=== PATIENT | female | born 1940 | race Caucasian/White ===

== ENCOUNTER → 2017-09-22 08:47 | Outpatient (CLI) | payer MEDICARE, SELFPAY ==
[2017-09-22 15:14] LABS: INR 2.49 (0.9-1.1); Prothrombin Time 27.1 seconds (9.4-11.8)
== END ==
PROVIDERS: PCP Pediatrics; Visit Provider Pediatrics
DX: Z51.81 Encounter for therapeutic drug level monitoring (principal)
CPT/HCPCS: 36415; 85610

== ENCOUNTER → 2017-10-31 08:38 | Outpatient (CLI) | payer MEDICARE, SELFPAY ==
[2017-10-31 15:03] LABS: INR 2.71 (0.9-1.1); Prothrombin Time 29.6 seconds (9.4-11.8)
== END ==
PROVIDERS: Visit Provider Pediatrics
DX: Z79.01 Long term (current) use of anticoagulants (principal); Z51.81 Encounter for therapeutic drug level monitoring
CPT/HCPCS: 36415; 85610

== ENCOUNTER → 2017-11-12 08:44 | Outpatient (CLI) | payer MEDICARE, SELFPAY ==
[2017-11-12 13:33] LABS: Basophils % 0.7 % (0.1-2.0); Eosinophils # 0.3 K/mm3 (0.0-0.4); Eosinophils % 4.3 % (0.1-12.0); Hemoglobin 12.1 g/dL (12.2-16.2); Lymphocytes # 1.7 K/mm3 (0.7-4.5); Lymphocytes % 25.6 K/mm3 (10-50); Mean Corpuscular HGB Conc 31.1 g/dL (31.8-35.4); Mean Corpuscular Hemoglobin 32.6 pg (27.0-31.2); Mean Corpuscular Volume 104.6 fl (81-99); Mean Platelet Volume 9.4 fl (7.4-10.4); Monocytes # 0.4 K/mm3 (0.1-1.0); Monocytes % 6.7 % (1.7-9.3); Neutrophils # 4.1 K/mm3 (1.8-7.8); Neutrophils % 62.7 % (37.0-80.0); Platelet Count 152 K/mm3 (142-424); Red Blood Count 3.73 M/mm3 (4.20-5.40); Red Cell Distribution Width 13.4 % (11.5-17.5); White Blood Count 6.6 K/mm3 (4.8-10.8)
[2017-11-12 15:08] LABS: Albumin Level 3.7 gm/dL (3.4-5.0); Anion Gap 10.7 mEq/L (5-15); Blood Urea Nitrogen 57 mg/dL (7-18); Calcium 9.3 mg/dL (8.5-10.1); Carbon Dioxide 32 mmol/L (21.0-32.0); Chloride 104 mmol/L (98-107); Creatinine,Serum 1.98 mg/dL (0.55-1.02); Estimated Glomerular Filt Rate 25 ml/min (>60); GFR (African American) 30 ML/MIN (>60); Glucose 148 mg/dL (74-106); Phosphorous 3.6 mg/dL (2.4-4.9); Potassium 4.7 mmoL/L (3.5-5.1); Sodium 142 mmol/L (136-145)
[2017-11-12 20:20] LABS: Creatinine,Urine Random 43 mg/dL (20-320); Total Protein,Urine Random 12.9 mg/dL (0.0-11.9)
[2017-11-14 15:21] LABS: Parathyroid Hormone Intact 171 pg/mL (15-65)
== END ==
PROVIDERS: Visit Provider Internal Medicine Nephrology
DX: Z79.01 Long term (current) use of anticoagulants (principal); Z51.81 Encounter for therapeutic drug level monitoring
CPT/HCPCS: 36415; 80069; 82570; 83970; 84155; 85025

== ENCOUNTER → 2017-12-22 08:47 | Outpatient (CLI) | payer MEDICARE, SELFPAY ==
[2017-12-22 14:39] LABS: INR 2.08 (0.9-1.1); Prothrombin Time 22.6 seconds (9.4-11.8)
== END ==
PROVIDERS: PCP Pediatrics; Visit Provider Pediatrics
DX: Z79.01 Long term (current) use of anticoagulants (principal); Z51.81 Encounter for therapeutic drug level monitoring
CPT/HCPCS: 36415; 85610

== ENCOUNTER → 2018-01-28 08:44 | Outpatient (CLI) | payer MEDICARE, SELFPAY ==
[2018-01-28 14:11] LABS: INR 2.98 (0.9-1.1); Prothrombin Time 32.6 seconds (9.4-11.8)
== END ==
PROVIDERS: Visit Provider Pediatrics
DX: Z79.01 Long term (current) use of anticoagulants (principal); Z51.81 Encounter for therapeutic drug level monitoring
CPT/HCPCS: 36415; 85610

== ENCOUNTER → 2018-02-18 09:01 | Outpatient (CLI) | payer MEDICARE, SELFPAY ==
[2018-02-18 14:20] LABS: Basophils % 0.6 % (0.1-2.0); Eosinophils # 0.2 K/mm3 (0.0-0.4); Hematocrit 36.1 % (37.0-47.0); Lymphocytes # 1.1 K/mm3 (0.7-4.5); Lymphocytes % 19.4 K/mm3 (10-50); Mean Corpuscular HGB Conc 30.6 g/dL (31.8-35.4); Mean Corpuscular Hemoglobin 31.5 pg (27.0-31.2); Mean Corpuscular Volume 103.1 fl (81-99); Mean Platelet Volume 9.5 fl (7.4-10.4); Monocytes # 0.4 K/mm3 (0.1-1.0); Monocytes % 6.1 % (1.7-9.3); Platelet Count 159 K/mm3 (142-424); Red Cell Distribution Width 13.4 % (11.5-17.5); White Blood Count 5.7 K/mm3 (4.8-10.8)
[2018-02-18 14:41] LABS: Albumin Level 3.5 gm/dL (3.4-5.0); Blood Urea Nitrogen 47 mg/dL (7-18); Calcium 9.7 mg/dL (8.5-10.1); Carbon Dioxide 30 mmol/L (21.0-32.0); Chloride 105 mmol/L (98-107); Creatinine,Serum 1.85 mg/dL (0.55-1.02); Estimated Glomerular Filt Rate 27 ml/min (>60); GFR (African American) 32 ML/MIN (>60); Glucose 181 mg/dL (74-106); Phosphorous 3.7 mg/dL (2.4-4.9); Sodium 141 mmol/L (136-145)
[2018-02-18 18:44] LABS: Creatinine,Urine Random 28 mg/dL (20-320); Total Protein,Urine Random 12.1 mg/dL (0.0-11.9)
[2018-02-20 20:03] LABS: Parathyroid Hormone Intact 161 pg/mL (15-65)
== END ==
PROVIDERS: Visit Provider Internal Medicine Nephrology
DX: N18.9 Chronic kidney disease, unspecified (principal); I10 Essential (primary) hypertension; N18.4 Chronic kidney disease, stage 4 (severe); E11.21 Type 2 diabetes mellitus with diabetic nephropathy; M10.9 Gout, unspecified; E78.5 Hyperlipidemia, unspecified; M25.819 Other specified joint disorders, unspecified shoulder
CPT/HCPCS: 36415; 80069; 82570; 83970; 84155; 85025

== ENCOUNTER → 2018-03-23 08:37 | Outpatient (CLI) | payer MEDICARE, SELFPAY ==
[2018-03-23 14:04] LABS: INR 2.33 (0.9-1.1); Prothrombin Time 23.4 seconds (9.4-11.8)
== END ==
PROVIDERS: Visit Provider Pediatrics
DX: Z79.01 Long term (current) use of anticoagulants (principal); Z51.81 Encounter for therapeutic drug level monitoring
CPT/HCPCS: 36415; 85610

== ENCOUNTER → 2018-05-20 08:42 | Outpatient (CLI) | payer MEDICARE, SELFPAY ==
[2018-05-20 14:02] LABS: Albumin Level 3.9 gm/dL (3.4-5.0); Anion Gap 11.9 mEq/L (5-15); Blood Urea Nitrogen 57 mg/dL (7-18); Calcium 9.9 mg/dL (8.5-10.1); Carbon Dioxide 32 mmol/L (21.0-32.0); Chloride 104 mmol/L (98-107); Creatinine,Serum 2.19 mg/dL (0.55-1.02); Estimated Glomerular Filt Rate 22 ml/min (>60); GFR (African American) 26 ML/MIN (>60); Glucose 157 mg/dL (74-106); Phosphorous 3.5 mg/dL (2.4-4.9); Potassium 4.9 mmoL/L (3.5-5.1); Sodium 143 mmol/L (136-145)
[2018-05-20 14:15] LABS: Basophils % 0.6 % (0.1-2.0); Eosinophils # 0.3 K/mm3 (0.0-0.4); Eosinophils % 3.8 % (0.1-12.0); Hematocrit 37.9 % (37.0-47.0); Hemoglobin 11.8 g/dL (12.2-16.2); Lymphocytes # 2.1 K/mm3 (0.7-4.5); Mean Corpuscular Hemoglobin 31.8 pg (27.0-31.2); Mean Corpuscular Volume 102.3 fl (81-99); Mean Platelet Volume 9.3 fl (7.4-10.4); Monocytes # 0.4 K/mm3 (0.1-1.0); Monocytes % 5.7 % (1.7-9.3); Neutrophils # 4.8 K/mm3 (1.8-7.8); Platelet Count 179 K/mm3 (142-424); Red Cell Distribution Width 13.5 % (11.5-17.5); White Blood Count 7.6 K/mm3 (4.8-10.8)
[2018-05-20 14:21] LABS: Creatinine,Urine Random 37 mg/dL (20-320); Total Protein,Urine Random 10.1 mg/dL (0.0-11.9)
[2018-05-20 15:03] LABS: INR 3.35 (0.9-1.1); Prothrombin Time 33.3 seconds (9.4-11.8)
[2018-05-22 18:39] LABS: Parathyroid Hormone Intact 181 pg/mL (15-65); Vitamin D 25 Hydroxy 47.9 ng/mL (30.0-100.0)
== END ==
PROVIDERS: Internal Medicine Nephrology; PCP Pediatrics; Visit Provider Pediatrics
DX: N18.9 Chronic kidney disease, unspecified (principal); N18.4 Chronic kidney disease, stage 4 (severe); I10 Essential (primary) hypertension; E11.21 Type 2 diabetes mellitus with diabetic nephropathy; M10.9 Gout, unspecified; E78.5 Hyperlipidemia, unspecified; N25.81 Secondary hyperparathyroidism of renal origin
CPT/HCPCS: 36415; 80069; 82570; 82652; 83970; 84155; 85025; 85610

== ENCOUNTER → 2018-06-26 08:43 | Outpatient (CLI) | payer MEDICARE, SELFPAY ==
[2018-06-26 15:11] LABS: INR 2.95 (0.9-1.1); Prothrombin Time 29.4 seconds (9.4-11.8)
== END ==
PROVIDERS: PCP Pediatrics; Visit Provider Pediatrics
DX: Z51.81 Encounter for therapeutic drug level monitoring (principal); Z79.01 Long term (current) use of anticoagulants; Z86.718 Personal history of other venous thrombosis and embolism
CPT/HCPCS: 36415; 85610

== ENCOUNTER → 2018-07-31 08:41 | Outpatient (CLI) | payer MEDICARE, SELFPAY ==
[2018-07-31 14:34] LABS: INR 2.78 (0.9-1.1); Prothrombin Time 27.8 seconds (9.4-11.8)
== END ==
PROVIDERS: PCP Pediatrics; Visit Provider Pediatrics
DX: Z51.81 Encounter for therapeutic drug level monitoring (principal); Z79.01 Long term (current) use of anticoagulants; Z86.718 Personal history of other venous thrombosis and embolism
CPT/HCPCS: 36415; 85610

== ENCOUNTER → 2018-08-28 08:42 | Outpatient (CLI) | payer MEDICARE, SELFPAY ==
[2018-08-28 14:25] LABS: INR 3.64 (0.9-1.1); Prothrombin Time 36.1 seconds (9.4-11.8)
== END ==
PROVIDERS: PCP Pediatrics; Visit Provider Pediatrics
DX: Z51.81 Encounter for therapeutic drug level monitoring (principal); Z79.01 Long term (current) use of anticoagulants; Z86.718 Personal history of other venous thrombosis and embolism
CPT/HCPCS: 36415; 85610

== ENCOUNTER → 2018-09-02 08:54 | Outpatient (CLI) | payer MEDICARE, SELFPAY ==
[2018-09-02 08:59] LABS: Microscopic, Urine URINE MICROSCOPIC (MICROSCOPIC)
[2018-09-02 14:37] LABS: Basophils % 0.7 % (0.1-2.0); Eosinophils # 0.2 K/mm3 (0.0-0.4); Eosinophils % 3.9 % (0.1-12.0); Hematocrit 38.6 % (37.0-47.0); Hemoglobin 11.8 g/dL (12.2-16.2); Lymphocytes # 1.7 K/mm3 (0.7-4.5); Mean Corpuscular HGB Conc 30.4 g/dL (31.8-35.4); Mean Corpuscular Hemoglobin 31.8 pg (27.0-31.2); Mean Corpuscular Volume 104.4 fl (81-99); Mean Platelet Volume 9.3 fl (7.4-10.4); Monocytes # 0.4 K/mm3 (0.1-1.0); Monocytes % 8.5 % (1.7-9.3); Neutrophils # 2.8 K/mm3 (1.8-7.8); Neutrophils % 54.9 % (37.0-80.0); Platelet Count 157 K/mm3 (142-424); Red Cell Distribution Width 13.6 % (11.5-17.5); White Blood Count 5.2 K/mm3 (4.8-10.8)
[2018-09-02 14:46] LABS: Albumin Level 3.5 gm/dL (3.4-5.0); Anion Gap 14.7 mEq/L (5-15); Blood Urea Nitrogen 43 mg/dL (7-18); Calcium 9.3 mg/dL (8.5-10.1); Carbon Dioxide 29 mmol/L (21.0-32.0); Chloride 102 mmol/L (98-107); Creatinine,Serum 2.08 mg/dL (0.55-1.02); Estimated Glomerular Filt Rate 23 ml/min (>60); Ferritin 96 ng/mL (8-388); GFR (African American) 28 ML/MIN (>60); Glucose 239 mg/dL (74-106); Phosphorous 3.6 mg/dL (2.4-4.9); Potassium 4.7 mmoL/L (3.5-5.1); Sodium 141 mmol/L (136-145)
[2018-09-02 15:46] LABS: Appearance,Urine CLEAR (Clear); Bilirubin,Urine Negative (Negative); Blood, Urine TRACE-I (Negative); Color,Urine YELLOW (Yellow); Glucose,Urine (UA) Negative (Negative); Ketones,Urine Negative (Negative); Leukocyte Esterase,Urine Negative (Negative); Nitrate,Urine Negative (Negative); PH,Urine 5.5 (5.0-8.5); Protein,Urine Negative (Negative); Specific Gravity, Urine 1.015 (1.005-1.030); Urobilinogen,Urine 0.2 EU/dl (0.2)
[2018-09-02 17:27] LABS: Bacteria,Urine 2+ /lpf; Hyaline Casts,Urine Occasional #/lpf (0); RBC,Urine Occasional #/hpf (0-3); Squamous Epithelial Cell,Urine Occasional #/hpf (0-5); WBC,Urine Occasional #/hpf (0-3)
[2018-09-02 17:31] LABS: Creatinine,Urine Random 43 mg/dL (20-320); Total Protein,Urine Random 7.7 mg/dL (0.0-11.9)
[2018-09-03 08:21] LABS: Iron 62 ug/dL (27-139); UIBC 230 ug/dL (118-369)
[2018-09-03 14:47] LABS: Iron Saturation 21 % (15-55); Parathyroid Hormone Intact 224 pg/mL (15-65); Vitamin D 25 Hydroxy 35.5 ng/mL (30.0-100.0)
== END ==
PROVIDERS: PCP Pediatrics; Visit Provider Internal Medicine Nephrology
DX: N18.4 Chronic kidney disease, stage 4 (severe) (principal); D63.8 Anemia in other chronic diseases classified elsewhere; E11.21 Type 2 diabetes mellitus with diabetic nephropathy; M10.9 Gout, unspecified; E78.5 Hyperlipidemia, unspecified; N25.81 Secondary hyperparathyroidism of renal origin; R82.90 Unspecified abnormal findings in urine
CPT/HCPCS: 36415; 80069; 81001; 82570; 82652; 82728; 83540; 83550; 83970; 84155; 85025; 87086; 87088; 87186

== ENCOUNTER → 2018-09-16 08:48 | Outpatient (CLI) | payer MEDICARE, SELFPAY ==
[2018-09-16 15:20] LABS: INR 2.86 (0.9-1.1); Prothrombin Time 28.6 seconds (9.4-11.8)
== END ==
PROVIDERS: PCP Pediatrics; Visit Provider Pediatrics
DX: Z51.81 Encounter for therapeutic drug level monitoring (principal); Z79.01 Long term (current) use of anticoagulants
CPT/HCPCS: 36415; 85610

== ENCOUNTER → 2018-11-16 08:57 | Outpatient (CLI) | payer MEDICARE, SELFPAY ==
[2018-11-16 09:04] LABS: Microscopic, Urine URINE MICROSCOPIC (MICROSCOPIC)
[2018-11-16 13:45] LABS: Appearance,Urine CLEAR (Clear); Bilirubin,Urine Negative (Negative); Blood, Urine Negative (Negative); Color,Urine YELLOW (Yellow); Glucose,Urine (UA) Negative (Negative); Ketones,Urine Negative (Negative); Leukocyte Esterase,Urine Negative (Negative); Nitrate,Urine Negative (Negative); PH,Urine 5.5 (5.0-8.5); Protein,Urine Negative (Negative); Urobilinogen,Urine 0.2 EU/dl (0.2)
[2018-11-16 13:50] LABS: Basophils % 0.7 % (0.1-2.0); Eosinophils # 0.2 K/mm3 (0.0-0.4); Eosinophils % 4.1 % (0.1-12.0); Hematocrit 37.2 % (37.0-47.0); Hemoglobin 12.2 g/dL (12.2-16.2); Lymphocytes # 1.5 K/mm3 (0.7-4.5); Lymphocytes % 26.4 % (10-50); Mean Corpuscular HGB Conc 32.8 g/dL (31.8-35.4); Mean Corpuscular Hemoglobin 33.7 pg (27.0-31.2); Mean Corpuscular Volume 102.7 fl (81-99); Mean Platelet Volume 9.2 fl (7.4-10.4); Monocytes # 0.4 K/mm3 (0.1-1.0); Monocytes % 7.2 % (1.7-9.3); Neutrophils # 3.6 K/mm3 (1.8-7.8); Neutrophils % 61.6 % (37.0-80.0); Platelet Count 136 K/mm3 (142-424); Red Blood Count 3.62 M/mm3 (4.20-5.40); Red Cell Distribution Width 13.3 % (11.5-17.5); White Blood Count 5.8 K/mm3 (4.8-10.8)
[2018-11-16 14:15] LABS: Bacteria,Urine 3+ /lpf; Mucus,Urine 2+ /lpf
[2018-11-16 14:16] LABS: Alanine Aminotransferase 19 U/L (12-78); Albumin Level 3.9 gm/dL (3.4-5.0); Albumin/Globulin Ratio 1.1 (1.1-1.8); Alkaline Phosphatase 82 U/L (46-116); Anion Gap 15.8 mEq/L (5-15); Aspartate Amino Transferase 18 U/L (15-37); Bilirubin,Total 0.3 mg/dL (0.2-1.0); Blood Urea Nitrogen 56 mg/dL (7-18); Calcium 9.4 mg/dL (8.5-10.1); Carbon Dioxide 28 mmol/L (21.0-32.0); Chloride 103 mmol/L (98-107); Chol/HDL Ratio 3.1 (1-3.5); Cholesterol 147 mg/dL (140-200); Creatinine,Serum 2.13 mg/dL (0.55-1.02); Estimated Glomerular Filt Rate 23 ml/min (>60); GFR (African American) 27 ML/MIN (>60); Globulin 3.6 gm/dl (1.3-3.2); Glucose 182 mg/dL (74-106); HDL Cholesterol 47 mg/dL (29-89); LDL Cholesterol 72 mg/dL (0-130); Potassium 4.8 mmoL/L (3.5-5.1); Sodium 142 mmol/L (136-145); Thyroid Stimulating Hormone 2.78 uIU/ml (0.358-3.740); Total Protein,Serum 7.5 gm/dL (6.4-8.2); Triglycerides 140 mg/dL (30-200); VLDL Cholesterol 28 mg/dL (0-40)
[2018-11-16 14:42] LABS: INR 2.74 (0.9-1.1); Prothrombin Time 27.4 seconds (9.4-11.8)
== END ==
PROVIDERS: PCP Pediatrics; Visit Provider Pediatrics
DX: Z51.81 Encounter for therapeutic drug level monitoring (principal); Z79.01 Long term (current) use of anticoagulants; E78.5 Hyperlipidemia, unspecified; E11.9 Type 2 diabetes mellitus without complications; N18.9 Chronic kidney disease, unspecified; R82.90 Unspecified abnormal findings in urine
CPT/HCPCS: 36415; 80053; 80061; 81001; 84443; 85025; 85610; 87086; 87088; 87186

== ENCOUNTER → 2019-01-27 08:46 | Outpatient (CLI) | payer MEDICARE, SELFPAY ==
[2019-01-27 14:55] LABS: INR 2.57 (0.9-1.1); Prothrombin Time 25.6 seconds (9.4-11.8)
== END ==
PROVIDERS: PCP Pediatrics; Visit Provider Pediatrics
DX: Z51.81 Encounter for therapeutic drug level monitoring (principal); Z79.01 Long term (current) use of anticoagulants
CPT/HCPCS: 36415; 85610

== ENCOUNTER → 2019-02-24 09:12 | Outpatient (CLI) | payer MEDICARE, SELFPAY ==
[2019-02-24 14:48] LABS: INR 3.47 (0.9-1.1)
== END ==
PROVIDERS: PCP Pediatrics; Visit Provider Pediatrics
DX: Z51.81 Encounter for therapeutic drug level monitoring (principal); Z79.01 Long term (current) use of anticoagulants
CPT/HCPCS: 36415; 85610

== ENCOUNTER → 2019-03-17 08:42 | Outpatient (CLI) | payer MEDICARE, SELFPAY ==
[2019-03-17 14:31] LABS: INR 2.09 (0.9-1.1)
== END ==
PROVIDERS: PCP Pediatrics; Visit Provider Pediatrics
DX: Z51.81 Encounter for therapeutic drug level monitoring (principal); Z79.01 Long term (current) use of anticoagulants
CPT/HCPCS: 36415; 85610

== ENCOUNTER → 2019-04-14 08:43 | Outpatient (CLI) | payer MEDICARE, SELFPAY ==
[2019-04-14 08:49] LABS: Microscopic, Urine URINE MICROSCOPIC (MICROSCOPIC)
[2019-04-14 13:58] LABS: Appearance,Urine CLEAR (Clear); Bilirubin,Urine Negative (Negative); Blood, Urine Negative (Negative); Color,Urine YELLOW (Yellow); Glucose,Urine (UA) Negative (Negative); Ketones,Urine Negative (Negative); Leukocyte Esterase,Urine Negative (Negative); Nitrate,Urine Negative (Negative); PH,Urine 5.5 (5.0-8.5); Protein,Urine Negative (Negative); Specific Gravity, Urine 1.015 (1.005-1.030); Urobilinogen,Urine 0.2 EU/dl (0.2)
[2019-04-14 14:08] LABS: Basophils % 0.5 % (0.1-2.0); Eosinophils # 0.2 K/mm3 (0.0-0.4); Eosinophils % 3.8 % (0.1-12.0); Hematocrit 37.5 % (37.0-47.0); Hemoglobin 11.8 g/dL (12.2-16.2); Lymphocytes # 1.6 K/mm3 (0.7-4.5); Lymphocytes % 24.4 % (10-50); Mean Corpuscular HGB Conc 31.4 g/dL (31.8-35.4); Mean Corpuscular Hemoglobin 33.1 pg (27.0-31.2); Mean Corpuscular Volume 105.3 fl (81-99); Mean Platelet Volume 9.2 fl (7.4-10.4); Monocytes # 0.5 K/mm3 (0.1-1.0); Neutrophils % 63.3 % (37.0-80.0); Platelet Count 170 K/mm3 (142-424); Red Blood Count 3.56 M/mm3 (4.20-5.40); Red Cell Distribution Width 13.5 % (11.5-17.5); White Blood Count 6.4 K/mm3 (4.8-10.8)
[2019-04-14 14:38] LABS: Bacteria,Urine 3+ /lpf
[2019-04-14 14:39] LABS: INR 1.58 (0.9-1.1); Prothrombin Time 16.1 seconds (9.4-11.8)
[2019-04-14 15:35] LABS: Creatinine,Urine Random 29 mg/dL (20-320); Total Protein,Urine Random 9.6 mg/dL (0.0-11.9)
[2019-04-14 15:37] LABS: Albumin Level 3.7 gm/dL (3.4-5.0); Anion Gap 12.8 mEq/L (5-15); Blood Urea Nitrogen 61 mg/dL (7-18); Carbon Dioxide 30 mmol/L (21.0-32.0); Chloride 104 mmol/L (98-107); Creatinine,Serum 2.25 mg/dL (0.55-1.02); Estimated Glomerular Filt Rate 21 ml/min (>60); Ferritin 95 ng/mL (8-388); GFR (African American) 26 ML/MIN (>60); Glucose 182 mg/dL (74-106); Phosphorous 3.6 mg/dL (2.4-4.9); Potassium 4.8 mmoL/L (3.5-5.1); Sodium 142 mmol/L (136-145)
[2019-04-15 08:13] LABS: Iron 69 ug/dL (27-139); UIBC 202 ug/dL (118-369)
[2019-04-16 18:01] LABS: Iron Saturation 25 % (15-55); Parathyroid Hormone Intact 167 pg/mL (15-65); Vitamin D 25 Hydroxy 45.3 ng/mL (30.0-100.0)
== END ==
PROVIDERS: PCP Pediatrics; Visit Provider Internal Medicine Nephrology
DX: N18.4 Chronic kidney disease, stage 4 (severe) (principal); E11.21 Type 2 diabetes mellitus with diabetic nephropathy; M10.9 Gout, unspecified; E78.5 Hyperlipidemia, unspecified; N25.81 Secondary hyperparathyroidism of renal origin; R82.90 Unspecified abnormal findings in urine
CPT/HCPCS: 36415; 80069; 81001; 82570; 82652; 82728; 83540; 83550; 83970; 84155; 85025; 85610; 87086; 87088; 87186

== ENCOUNTER → 2019-05-31 09:22 | Outpatient (CLI) | payer MEDICARE, SELFPAY ==
[2019-05-31 14:09] LABS: Basophils % 0.4 % (0.1-2.0); Eosinophils # 0.3 K/mm3 (0.0-0.4); Eosinophils % 5.3 % (0.1-12.0); Hemoglobin 10.3 g/dL (12.2-16.2); Lymphocytes # 1.9 K/mm3 (0.7-4.5); Lymphocytes % 37.2 % (10-50); Mean Corpuscular HGB Conc 29.3 g/dL (31.8-35.4); Mean Corpuscular Hemoglobin 32.4 pg (27.0-31.2); Mean Corpuscular Volume 110.5 fl (81-99); Mean Platelet Volume 9.9 fl (7.4-10.4); Monocytes # 0.5 K/mm3 (0.1-1.0); Monocytes % 9.1 % (1.7-9.3); Neutrophils # 2.5 K/mm3 (1.8-7.8); Neutrophils % 48.1 % (37.0-80.0); Platelet Count 175 K/mm3 (142-424); Red Blood Count 3.17 M/mm3 (4.20-5.40); Red Cell Distribution Width 14.9 % (11.5-17.5); White Blood Count 5.2 K/mm3 (4.8-10.8)
[2019-05-31 14:40] LABS: Alanine Aminotransferase 10 U/L (12-78); Albumin Level 3.4 gm/dL (3.4-5.0); Albumin/Globulin Ratio 0.9 (1.1-1.8); Alkaline Phosphatase 50 U/L (46-116); Anion Gap 15.5 mEq/L (5-15); Aspartate Amino Transferase 14 U/L (15-37); Bilirubin,Total 0.5 mg/dL (0.2-1.0); Blood Urea Nitrogen 25 mg/dL (7-18); Calcium 9.7 mg/dL (8.5-10.1); Carbon Dioxide 24 mmol/L (21.0-32.0); Chloride 108 mmol/L (98-107); Creatinine,Serum 1.45 mg/dL (0.55-1.02); Estimated Glomerular Filt Rate 35 ml/min (>60); GFR (African American) 42 ML/MIN (>60); Globulin 3.7 gm/dl (1.3-3.2); Glucose 98 mg/dL (74-106); Potassium 4.5 mmoL/L (3.5-5.1); Sodium 143 mmol/L (136-145); Total Protein,Serum 7.1 gm/dL (6.4-8.2)
[2019-05-31 15:40] LABS: INR 1.58 (0.9-1.1); Prothrombin Time 16.1 seconds (9.4-11.8)
== END ==
PROVIDERS: PCP Pediatrics; Visit Provider Pediatrics
DX: Z51.81 Encounter for therapeutic drug level monitoring (principal); Z79.01 Long term (current) use of anticoagulants; R53.83 Other fatigue; J18.9 Pneumonia, unspecified organism
CPT/HCPCS: 36415; 80053; 85025; 85610

== ENCOUNTER → 2019-06-25 08:35 | Outpatient (CLI) | payer MEDICARE, SELFPAY ==
[2019-06-25 14:31] LABS: INR 1.49 (0.9-1.1); Prothrombin Time 15.2 seconds (9.4-11.8)
== END ==
PROVIDERS: PCP Pediatrics; Visit Provider Pediatrics
DX: Z51.81 Encounter for therapeutic drug level monitoring (principal); Z79.01 Long term (current) use of anticoagulants
CPT/HCPCS: 36415; 85610

== ENCOUNTER → 2019-07-09 08:31 | Outpatient (CLI) | payer MEDICARE, SELFPAY ==
[2019-07-09 15:18] LABS: INR 2.97 (0.9-1.1); Prothrombin Time 29.3 seconds (9.4-11.8)
== END ==
PROVIDERS: PCP Pediatrics; Visit Provider Pediatrics
DX: Z51.81 Encounter for therapeutic drug level monitoring (principal); Z79.01 Long term (current) use of anticoagulants
CPT/HCPCS: 36415; 85610

== ENCOUNTER → 2019-07-14 08:40 | Outpatient (CLI) | payer MEDICARE, SELFPAY ==
[2019-07-14 08:43] LABS: Microscopic, Urine URINE MICROSCOPIC (MICROSCOPIC)
[2019-07-14 13:47] LABS: Appearance,Urine CLEAR (Clear); Bilirubin,Urine Negative (Negative); Blood, Urine Negative (Negative); Color,Urine YELLOW (Yellow); Glucose,Urine (UA) Negative (Negative); Ketones,Urine Negative (Negative); Leukocyte Esterase,Urine Negative (Negative); Nitrate,Urine Negative (Negative); Protein,Urine Negative (Negative); Specific Gravity, Urine 1.015 (1.005-1.030); Urobilinogen,Urine 0.2 EU/dl (0.2)
[2019-07-14 14:19] LABS: Basophils % 0.6 % (0.1-2.0); Eosinophils # 0.5 K/mm3 (0.0-0.4); Eosinophils % 7.8 % (0.1-12.0); Hematocrit 37.9 % (37.0-47.0); Lymphocytes # 1.7 K/mm3 (0.7-4.5); Lymphocytes % 26.5 % (10-50); Mean Corpuscular HGB Conc 31.7 g/dL (31.8-35.4); Mean Corpuscular Hemoglobin 32.9 pg (27.0-31.2); Mean Corpuscular Volume 103.8 fl (81-99); Mean Platelet Volume 10.3 fl (7.4-10.4); Monocytes # 0.4 K/mm3 (0.1-1.0); Monocytes % 5.5 % (1.7-9.3); Neutrophils # 3.7 K/mm3 (1.8-7.8); Neutrophils % 59.6 % (37.0-80.0); Platelet Count 182 K/mm3 (142-424); Red Blood Count 3.65 M/mm3 (4.20-5.40); Red Cell Distribution Width 13.2 % (11.5-17.5); White Blood Count 6.3 K/mm3 (4.8-10.8)
[2019-07-14 14:43] LABS: Bacteria,Urine 3+ /lpf
[2019-07-14 14:50] LABS: Albumin Level 3.5 gm/dL (3.4-5.0); Blood Urea Nitrogen 45 mg/dL (7-18); Calcium 9.6 mg/dL (8.5-10.1); Carbon Dioxide 31 mmol/L (21.0-32.0); Chloride 102 mmol/L (98-107); Creatinine,Serum 2.03 mg/dL (0.55-1.02); Estimated Glomerular Filt Rate 24 ml/min (>60); GFR (African American) 29 ML/MIN (>60); Glucose 176 mg/dL (74-106); Phosphorous 2.8 mg/dL (2.4-4.9); Sodium 142 mmol/L (136-145)
[2019-07-15 09:10] LABS: Microalbumin, Urine 14.3 ug/mL (Not Estab.)
[2019-07-16 06:48] LABS: Parathyroid Hormone Intact 158 pg/mL (15-65)
== END ==
PROVIDERS: PCP Pediatrics; Visit Provider Internal Medicine Nephrology
DX: N18.9 Chronic kidney disease, unspecified (principal); N18.4 Chronic kidney disease, stage 4 (severe); N25.81 Secondary hyperparathyroidism of renal origin; N39.0 Urinary tract infection, site not specified; E11.21 Type 2 diabetes mellitus with diabetic nephropathy; E78.5 Hyperlipidemia, unspecified; M10.9 Gout, unspecified
CPT/HCPCS: 36415; 80069; 81001; 82043; 82570; 83970; 85025; 87086; 87088; 87186

== ENCOUNTER → 2019-08-27 08:39 | Outpatient (CLI) | payer MEDICARE, SELFPAY ==
[2019-08-27 14:21] LABS: INR 5.27 (0.9-1.1); Prothrombin Time 50.6 seconds (9.4-11.8)
== END ==
PROVIDERS: Visit Provider Pediatrics
DX: Z51.81 Encounter for therapeutic drug level monitoring (principal); Z79.01 Long term (current) use of anticoagulants
CPT/HCPCS: 36415; 85610

== ENCOUNTER → 2019-09-02 10:07 | Outpatient (CLI) | payer MEDICARE, SELFPAY ==
[2019-09-02 15:01] LABS: INR 3.08 (0.9-1.1); Prothrombin Time 30.4 seconds (9.4-11.8)
== END ==
PROVIDERS: PCP Pediatrics; Visit Provider Pediatrics
DX: Z51.81 Encounter for therapeutic drug level monitoring (principal); Z79.01 Long term (current) use of anticoagulants
CPT/HCPCS: 36415; 85610

== ENCOUNTER → 2019-09-17 08:29 | Outpatient (CLI) | payer MEDICARE, SELFPAY ==
[2019-09-17 14:16] LABS: INR 2.13 (0.9-1.1); Prothrombin Time 21.4 seconds (9.4-11.8)
== END ==
PROVIDERS: Visit Provider Pediatrics
DX: Z51.81 Encounter for therapeutic drug level monitoring (principal); Z79.01 Long term (current) use of anticoagulants
CPT/HCPCS: 36415; 85610

== ENCOUNTER → 2019-10-20 08:34 | Outpatient (CLI) | payer MEDICARE, SELFPAY ==
[2019-10-20 13:43] LABS: Basophils # 0.1 K/mm3 (0-0.2); Basophils % 0.8 % (0.1-2.0); Eosinophils # 0.4 K/mm3 (0.0-0.4); Eosinophils % 6.4 % (0.1-12.0); Hematocrit 37.8 % (37.0-47.0); Hemoglobin 12.1 g/dL (12.2-16.2); Lymphocytes % 28.3 % (10-50); Mean Corpuscular Hemoglobin 33.1 pg (27.0-31.2); Mean Corpuscular Volume 103.5 fl (81-99); Mean Platelet Volume 9.4 fl (7.4-10.4); Monocytes # 0.5 K/mm3 (0.1-1.0); Monocytes % 6.6 % (1.7-9.3); Neutrophils % 57.9 % (37.0-80.0); Platelet Count 174 K/mm3 (142-424); Red Blood Count 3.65 M/mm3 (4.20-5.40); Red Cell Distribution Width 13.9 % (11.5-17.5)
[2019-10-20 14:18] LABS: INR 2.41 (0.9-1.1)
[2019-10-20 14:20] LABS: Albumin Level 4.2 g/dl (3.5-5.0); Blood Urea Nitrogen 62 mg/dl (7-17); Calcium 10.9 mg/dl (8.4-10.2); Carbon Dioxide 32 mmol/L (22.0-30.0); Chloride 98 mmol/L (98-107); Estimated Glomerular Filt Rate 22 ml/min (>60); GFR (African American) 26 ML/MIN (>60); Glucose 180 mg/dl (74-100); Phosphorous 3.6 mg/dl (2.5-4.5); Sodium 139 mmol/L (136-145)
[2019-10-21 11:17] LABS: Creatinine, Urine 71.1 mg/dL (Not Estab.); Microalbumin, Urine 28.5 ug/mL (Not Estab.)
[2019-10-22 10:34] LABS: Parathyroid Hormone Intact 83 pg/mL (15-65)
== END ==
PROVIDERS: Internal Medicine Nephrology; Visit Provider Pediatrics
DX: N18.9 Chronic kidney disease, unspecified (principal); N18.4 Chronic kidney disease, stage 4 (severe); E11.21 Type 2 diabetes mellitus with diabetic nephropathy; M10.9 Gout, unspecified; E78.5 Hyperlipidemia, unspecified; N25.81 Secondary hyperparathyroidism of renal origin; N39.0 Urinary tract infection, site not specified
CPT/HCPCS: 36415; 80069; 82043; 82570; 83970; 85025; 85610

== ENCOUNTER → 2019-12-16 09:21 | Outpatient (CLI) | payer MEDICARE, SELFPAY ==
[2019-12-16 15:12] LABS: INR 2.98 (0.9-1.1); Prothrombin Time 29.4 seconds (9.4-11.8)
== END ==
PROVIDERS: Visit Provider Pediatrics
DX: Z51.81 Encounter for therapeutic drug level monitoring (principal); Z79.01 Long term (current) use of anticoagulants; Z86.718 Personal history of other venous thrombosis and embolism
CPT/HCPCS: 36415; 85610

== ENCOUNTER → 2020-01-11 09:29 | Outpatient (CLI) | payer MEDICARE, SELFPAY ==
[2020-01-11 15:18] LABS: Basophils # 0.1 K/mm3 (0-0.2); Basophils % 1.3 % (0.1-2.0); Eosinophils # 0.3 K/mm3 (0.0-0.4); Eosinophils % 5.7 % (0.1-12.0); Hematocrit 38.3 % (37.0-47.0); Hemoglobin 11.5 g/dL (12.2-16.2); Lymphocytes # 1.7 K/mm3 (0.7-4.5); Lymphocytes % 29.4 % (10-50); Mean Corpuscular HGB Conc 30.1 g/dL (31.8-35.4); Mean Corpuscular Volume 103.2 fl (81-99); Mean Platelet Volume 9.9 fl (7.4-10.4); Monocytes # 0.4 K/mm3 (0.1-1.0); Neutrophils # 3.4 K/mm3 (1.8-7.8); Neutrophils % 56.7 % (37.0-80.0); Platelet Count 184 K/mm3 (142-424); Red Blood Count 3.71 M/mm3 (4.20-5.40); Red Cell Distribution Width 14.2 % (11.5-17.5); White Blood Count 5.9 K/mm3 (4.8-10.8)
[2020-01-11 15:32] LABS: Albumin Level 4.3 g/dl (3.5-5.0); Anion Gap 10.3 mEq/L (5-15); Blood Urea Nitrogen 62 mg/dl (7-17); Calcium 10.7 mg/dl (8.4-10.2); Carbon Dioxide 32 mmol/L (22.0-30.0); Chloride 100 mmol/L (98-107); Estimated Glomerular Filt Rate 23 ml/min (>60); GFR (African American) 28 ML/MIN (>60); Glucose 160 mg/dl (74-100); Phosphorous 3.4 mg/dl (2.5-4.5); Potassium 4.3 mmoL/L (3.5-5.1); Sodium 138 mmol/L (136-145)
[2020-01-11 18:09] LABS: INR 1.77 (0.9-1.1); Prothrombin Time 17.9 seconds (9.4-11.8)
[2020-01-12 10:48] LABS: Creatinine, Urine 37.4 mg/dL (Not Estab.); Microalbumin, Urine 37.7 ug/mL (Not Estab.)
[2020-01-13 11:13] LABS: Vitamin D 25 Hydroxy 43.2 ng/mL (30.0-100.0)
[2020-01-13 11:14] LABS: Parathyroid Hormone Intact 171 pg/mL (15-65)
== END ==
PROVIDERS: Pediatrics; Visit Provider Internal Medicine Nephrology
DX: N18.9 Chronic kidney disease, unspecified (principal); N18.4 Chronic kidney disease, stage 4 (severe); E11.21 Type 2 diabetes mellitus with diabetic nephropathy; M10.9 Gout, unspecified; E78.5 Hyperlipidemia, unspecified; N25.81 Secondary hyperparathyroidism of renal origin; N39.0 Urinary tract infection, site not specified; Z51.81 Encounter for therapeutic drug level monitoring; Z79.01 Long term (current) use of anticoagulants
CPT/HCPCS: 36415; 80069; 82043; 82570; 82652; 83970; 85025; 85610

== ENCOUNTER → 2020-04-13 08:02 | Outpatient (CLI) | payer MEDICARE, SELFPAY ==
[2020-04-13 13:43] LABS: Basophils # 0.1 K/mm3 (0-0.2); Basophils % 0.8 % (0.1-2.0); Eosinophils # 0.4 K/mm3 (0.0-0.4); Hematocrit 37.3 % (37.0-47.0); Hemoglobin 12.2 g/dL (12.2-16.2); Lymphocytes # 1.9 K/mm3 (0.7-4.5); Lymphocytes % 30.5 % (10-50); Mean Corpuscular HGB Conc 32.7 g/dL (31.8-35.4); Mean Corpuscular Hemoglobin 33.9 pg (27.0-31.2); Mean Corpuscular Volume 103.7 fl (81-99); Mean Platelet Volume 9.9 fl (7.4-10.4); Monocytes # 0.4 K/mm3 (0.1-1.0); Monocytes % 6.8 % (1.7-9.3); Neutrophils # 3.6 K/mm3 (1.8-7.8); Neutrophils % 55.8 % (37.0-80.0); Platelet Count 169 K/mm3 (142-424); Red Blood Count 3.59 M/mm3 (4.20-5.40); White Blood Count 6.4 K/mm3 (4.8-10.8)
[2020-04-13 13:51] LABS: Albumin Level 4.1 g/dl (3.5-5.0); Calcium 10.6 mg/dl (8.4-10.2); Carbon Dioxide 34 mmol/L (22.0-30.0); Chloride 98 mmol/L (98-107); Estimated Glomerular Filt Rate 24 ml/min (>60); GFR (African American) 29 ML/MIN (>60); Glucose 93 mg/dl (74-100); Phosphorous 3.7 mg/dl (2.5-4.5); Sodium 141 mmol/L (136-145)
[2020-04-13 13:52] LABS: INR 2.39 (0.9-1.1); Prothrombin Time 23.3 seconds (9.4-11.8)
[2020-04-13 13:57] LABS: Blood Urea Nitrogen 83 mg/dl (7-17)
[2020-04-13 14:02] LABS: Intact Parathyroid Hormone 224.6 pg/mL (7.5-53.5)
[2020-04-13 14:06] LABS: Creatinine,Urine Random 53 mg/dL (Not Estab.); Microalbumin/Creatinine Ratio 40.7
[2020-04-13 14:08] LABS: 25-OH Vitamin D, Total 37.9 ng/mL (30-100)
[2020-04-13 14:26] LABS: Anion Gap 12.6 mEq/L (5-15); Potassium 3.6 mmoL/L (3.5-5.1)
== END ==
PROVIDERS: PCP Pediatrics; Visit Provider Internal Medicine Nephrology
DX: N18.4 Chronic kidney disease, stage 4 (severe) (principal); N18.9 Chronic kidney disease, unspecified; E11.21 Type 2 diabetes mellitus with diabetic nephropathy; M10.9 Gout, unspecified; E78.5 Hyperlipidemia, unspecified; N25.81 Secondary hyperparathyroidism of renal origin; I12.9 Hypertensive chronic kidney disease with stage 1 through stage 4 chronic kidney disease, or unspecified chronic kidney disease; N39.0 Urinary tract infection, site not specified
CPT/HCPCS: 36415; 80069; 82043; 82306; 82570; 83970; 85025; 85610

== ENCOUNTER → 2020-10-09 08:28 | Outpatient (CLI) | payer MEDICARE, SELFPAY ==
[2020-10-09 14:02] LABS: Chloride 110 mmol/L (98-107); Potassium 4.2 mmoL/L (3.5-5.1); Sodium 140 mmol/L (136-145)
[2020-10-09 14:05] LABS: Alanine Aminotransferase 6 U/L (12-78); Albumin Level 2.5 g/dl (3.5-5.0); Albumin/Globulin Ratio 0.9 (1.1-1.8); Alkaline Phosphatase 71 U/L (38-126); Anion Gap 4.2 mEq/L (5-15); Aspartate Amino Transferase 17 U/L (14-36); Bilirubin,Total 0.4 mg/dl (0.2-1.3); Blood Urea Nitrogen 36 mg/dl (7-17); Carbon Dioxide 30 mmol/L (22.0-30.0); Cholesterol 110 mg/dl (140-200); Estimated Glomerular Filt Rate 34 ml/min (>60); GFR (African American) 41 ML/MIN (>60); Globulin 2.7 g/dL (1.3-3.2); Total Protein,Serum 5.2 g/dl (6.3-8.2); Triglycerides 106 mg/dl (30-150); VLDL Cholesterol 21 mg/dL (0-40)
[2020-10-09 14:06] LABS: Calcium 9.2 mg/dl (8.4-10.2); Chol/HDL Ratio 4.6 (1-3.5); Glucose 117 mg/dl (74-100); HDL Cholesterol 24 mg/dl (40-60)
[2020-10-09 14:17] LABS: Basophils % 0.5 % (0.1-2.0); Eosinophils # 0.4 K/mm3 (0.0-0.4); Eosinophils % 9.5 % (0.1-12.0); Hematocrit 27.3 % (37.0-47.0); Hemoglobin 8.6 g/dL (12.2-16.2); Lymphocytes % 47.6 % (10-50); Mean Corpuscular HGB Conc 31.6 g/dL (31.8-35.4); Mean Corpuscular Volume 101.5 fl (81-99); Mean Platelet Volume 9.7 fl (7.4-10.4); Monocytes # 0.3 K/mm3 (0.1-1.0); Monocytes % 6.6 % (1.7-9.3); Neutrophils # 1.5 K/mm3 (1.8-7.8); Neutrophils % 35.8 % (37.0-80.0); Platelet Count 160 K/mm3 (142-424); Red Blood Count 2.69 M/mm3 (4.20-5.40); Red Cell Distribution Width 17.3 % (11.5-17.5); White Blood Count 4.2 K/mm3 (4.8-10.8)
[2020-10-09 15:33] LABS: Hemoglobin A1C 5.5 % (4.0-6.0)
== END ==
PROVIDERS: Visit Provider Nurse Practitioner Family
DX: E11.21 Type 2 diabetes mellitus with diabetic nephropathy (principal); E78.5 Hyperlipidemia, unspecified; N18.4 Chronic kidney disease, stage 4 (severe); D63.1 Anemia in chronic kidney disease
CPT/HCPCS: 36415; 80053; 80061; 83036; 85025

== ENCOUNTER → 2020-10-16 08:30 | Outpatient (CLI) | payer MEDICARE, SELFPAY ==
[2020-10-16 14:22] LABS: Iron 30 ug/dL (37-170)
[2020-10-16 15:13] LABS: Vitamin B12 233 pg/mL (239-931)
[2020-10-16 15:31] LABS: Basophils % 0.2 % (0.1-2.0); Eosinophils # 0.2 K/mm3 (0.0-0.4); Eosinophils % 3.4 % (0.1-12.0); Hematocrit 31.8 % (37.0-47.0); Hemoglobin 9.9 g/dL (12.2-16.2); Lymphocytes # 2.1 K/mm3 (0.7-4.5); Lymphocytes % 41.5 % (10-50); Mean Corpuscular HGB Conc 31.1 g/dL (31.8-35.4); Mean Corpuscular Hemoglobin 31.7 pg (27.0-31.2); Mean Corpuscular Volume 101.8 fl (81-99); Mean Platelet Volume 10.1 fl (7.4-10.4); Monocytes # 0.3 K/mm3 (0.1-1.0); Monocytes % 6.9 % (1.7-9.3); Neutrophils # 2.4 K/mm3 (1.8-7.8); Neutrophils % 47.9 % (37.0-80.0); Platelet Count 224 K/mm3 (142-424); Red Blood Count 3.12 M/mm3 (4.20-5.40); Red Cell Distribution Width 16.8 % (11.5-17.5)
[2020-10-16 16:05] LABS: Total Iron Binding Capacity 219 ug/dL (265-497)
== END ==
PROVIDERS: Visit Provider Nurse Practitioner Family
DX: I25.10 Atherosclerotic heart disease of native coronary artery without angina pectoris (principal); N18.4 Chronic kidney disease, stage 4 (severe); D50.9 Iron deficiency anemia, unspecified
CPT/HCPCS: 36415; 82607; 83540; 83550; 85025

== ENCOUNTER → 2020-10-30 09:30 | Outpatient (CLI) | payer MEDICARE, SELFPAY ==
[2020-10-30 11:01] LABS: INR 2.79 (0.9-1.1); Prothrombin Time 30.5 seconds (9.4-11.8)
== END ==
PROVIDERS: Visit Provider Nurse Practitioner Family
DX: Z51.81 Encounter for therapeutic drug level monitoring (principal); Z79.01 Long term (current) use of anticoagulants
CPT/HCPCS: 36415; 85610

== ENCOUNTER → 2020-10-31 10:04 | Outpatient (CLI) | payer MEDICARE, SELFPAY ==
[2020-10-31 14:04] LABS: Chloride 110 mmol/L (98-107); Potassium 4.1 mmoL/L (3.5-5.1); Sodium 141 mmol/L (136-145)
[2020-10-31 14:07] LABS: Alanine Aminotransferase 6 U/L (12-78); Albumin Level 2.8 g/dl (3.5-5.0); Alkaline Phosphatase 80 U/L (38-126); Anion Gap 7.1 mEq/L (5-15); Aspartate Amino Transferase 17 U/L (14-36); Bilirubin,Total 0.4 mg/dl (0.2-1.3); Blood Urea Nitrogen 51 mg/dl (7-17); Calcium 9.8 mg/dl (8.4-10.2); Carbon Dioxide 28 mmol/L (22.0-30.0); Estimated Glomerular Filt Rate 36 ml/min (>60); GFR (African American) 44 ML/MIN (>60); Globulin 2.8 g/dL (1.3-3.2); Glucose 126 mg/dl (74-100); Total Protein,Serum 5.6 g/dl (6.3-8.2)
[2020-10-31 14:12] LABS: Basophils % 0.3 % (0.1-2.0); Eosinophils # 2.3 K/mm3 (0.0-0.4); Eosinophils % 33.6 % (0.1-12.0); Hematocrit 31.4 % (37.0-47.0); Hemoglobin 9.7 g/dL (12.2-16.2); Lymphocytes # 2.1 K/mm3 (0.7-4.5); Lymphocytes % 30.3 % (10-50); Mean Corpuscular HGB Conc 30.9 g/dL (31.8-35.4); Mean Corpuscular Hemoglobin 31.7 pg (27.0-31.2); Mean Corpuscular Volume 102.6 fl (81-99); Mean Platelet Volume 10.7 fl (7.4-10.4); Monocytes # 0.3 K/mm3 (0.1-1.0); Neutrophils # 2.2 K/mm3 (1.8-7.8); Neutrophils % 31.8 % (37.0-80.0); Platelet Count 130 K/mm3 (142-424); Red Blood Count 3.06 M/mm3 (4.20-5.40); Red Cell Distribution Width 16.1 % (11.5-17.5)
== END ==
PROVIDERS: Visit Provider Nurse Practitioner Family
DX: Z51.81 Encounter for therapeutic drug level monitoring (principal); Z79.01 Long term (current) use of anticoagulants
CPT/HCPCS: 36415; 80053; 85025

== ENCOUNTER → 2020-11-16 07:53 | Outpatient (CLI) | payer MEDICARE, SELFPAY ==
[2020-11-16 13:53] LABS: Uric Acid 9.2 mg/dl (2.5-6.2)
== END ==
PROVIDERS: Visit Provider Nurse Practitioner Family
DX: E79.0 Hyperuricemia without signs of inflammatory arthritis and tophaceous disease (principal); R82.998 Other abnormal findings in urine
CPT/HCPCS: 36415; 84550

== ENCOUNTER → 2020-11-20 08:09 | Outpatient (CLI) | payer MEDICARE, SELFPAY ==
[2020-11-20 15:33] LABS: INR 1.11 (0.9-1.1)
== END ==
PROVIDERS: Visit Provider Nurse Practitioner Family
DX: Z51.81 Encounter for therapeutic drug level monitoring (principal); Z79.01 Long term (current) use of anticoagulants
CPT/HCPCS: 36415; 85610

== ENCOUNTER → 2020-12-04 08:44 | Outpatient (CLI) | payer MEDICARE, SELFPAY ==
[2020-12-04 18:33] LABS: INR 1.95 (0.9-1.1); Prothrombin Time 21.9 seconds (10.1-12.5)
== END ==
PROVIDERS: PCP Pediatrics; Visit Provider Nurse Practitioner Family
DX: Z51.81 Encounter for therapeutic drug level monitoring (principal); Z79.01 Long term (current) use of anticoagulants; R79.1 Abnormal coagulation profile
CPT/HCPCS: 36415; 85610

== ENCOUNTER → 2021-01-02 09:45 | Outpatient (CLI) | payer MEDICARE, SELFPAY ==
[2021-01-02 14:13] LABS: Chloride 108 mmol/L (98-107)
[2021-01-02 14:14] LABS: Potassium 3.8 mmoL/L (3.5-5.1); Sodium 139 mmol/L (136-145)
[2021-01-02 14:16] LABS: Alanine Aminotransferase 6 U/L (12-78); Alkaline Phosphatase 77 U/L (38-126); Anion Gap 6.8 mEq/L (5-15); Aspartate Amino Transferase 15 U/L (14-36); Bilirubin,Total 0.4 mg/dl (0.2-1.3); Blood Urea Nitrogen 33 mg/dl (7-17); Carbon Dioxide 28 mmol/L (22.0-30.0); Estimated Glomerular Filt Rate 40 ml/min (>60); GFR (African American) 48 ML/MIN (>60)
[2021-01-02 14:17] LABS: Albumin Level 2.7 g/dl (3.5-5.0); Albumin/Globulin Ratio 1.2 (1.1-1.8); Calcium 9.3 mg/dl (8.4-10.2); Globulin 2.3 g/dL (1.3-3.2); Glucose 131 mg/dl (74-100)
[2021-01-02 14:35] LABS: Basophils % 0.3 % (0.1-2.0); Eosinophils # 0.4 K/mm3 (0.0-0.4); Eosinophils % 6.8 % (0.1-12.0); Hematocrit 30.9 % (37.0-47.0); Hemoglobin 9.9 g/dL (12.2-16.2); Lymphocytes # 2.3 K/mm3 (0.7-4.5); Lymphocytes % 41.5 % (10-50); Mean Corpuscular HGB Conc 32.2 g/dL (31.8-35.4); Mean Corpuscular Hemoglobin 31.8 pg (27.0-31.2); Mean Corpuscular Volume 98.7 fl (81-99); Mean Platelet Volume 10.2 fl (7.4-10.4); Monocytes # 0.3 K/mm3 (0.1-1.0); Monocytes % 5.1 % (1.7-9.3); Neutrophils # 2.6 K/mm3 (1.8-7.8); Neutrophils % 46.2 % (37.0-80.0); Platelet Count 148 K/mm3 (142-424); Red Blood Count 3.13 M/mm3 (4.20-5.40); Red Cell Distribution Width 15.1 % (11.5-17.5); White Blood Count 5.5 K/mm3 (4.8-10.8)
[2021-01-02 16:09] LABS: Hemoglobin A1C 7.3 % (4.0-6.0)
== END ==
PROVIDERS: Visit Provider Nurse Practitioner Family
DX: D50.9 Iron deficiency anemia, unspecified (principal); E11.40 Type 2 diabetes mellitus with diabetic neuropathy, unspecified
CPT/HCPCS: 36415; 80053; 83036; 85025

== ENCOUNTER → 2021-01-04 07:45 | Outpatient (CLI) | payer MEDICARE, SELFPAY ==
[2021-01-04 14:26] LABS: INR 3.39 (0.9-1.1); Prothrombin Time 36.5 seconds (10.1-12.5)
== END ==
PROVIDERS: Visit Provider Nurse Practitioner Family
DX: Z51.81 Encounter for therapeutic drug level monitoring (principal); Z79.01 Long term (current) use of anticoagulants
CPT/HCPCS: 36415; 85610

== ENCOUNTER → 2021-01-15 08:07 | Outpatient (CLI) | payer MEDICARE, SELFPAY ==
[2021-01-15 16:02] LABS: INR 2.46 (0.9-1.1); Prothrombin Time 27.2 seconds (10.1-12.5)
== END ==
PROVIDERS: Visit Provider Internal Medicine Adolescent Medicine
DX: R79.1 Abnormal coagulation profile (principal)
CPT/HCPCS: 36415; 85610

== ENCOUNTER → 2021-02-05 07:27 | Outpatient (CLI) | payer MEDICARE, SELFPAY ==
[2021-02-05 17:57] LABS: INR 4.14 (0.9-1.1)
== END ==
PROVIDERS: Visit Provider Nurse Practitioner Family
DX: D50.9 Iron deficiency anemia, unspecified (principal)
CPT/HCPCS: 36415; 85610

== ENCOUNTER → 2021-02-19 07:40 | Outpatient (CLI) | payer MEDICARE, SELFPAY ==
[2021-02-19 15:00] LABS: INR 2.77 (0.9-1.1); Prothrombin Time 30.3 seconds (10.1-12.5)
== END ==
PROVIDERS: Visit Provider Nurse Practitioner Family
DX: Z51.81 Encounter for therapeutic drug level monitoring (principal); Z79.01 Long term (current) use of anticoagulants; I48.91 Unspecified atrial fibrillation
CPT/HCPCS: 36415; 85610

== ENCOUNTER → 2021-03-05 07:15 | Outpatient (CLI) | payer MEDICARE, SELFPAY ==
[2021-03-05 14:10] LABS: Prothrombin Time 48.2 seconds (10.1-12.5)
[2021-03-05 14:11] LABS: INR 4.57 (0.9-1.1)
== END ==
PROVIDERS: Visit Provider Nurse Practitioner Family
DX: R79.1 Abnormal coagulation profile (principal)
CPT/HCPCS: 36415; 85610

== ENCOUNTER → 2021-03-07 17:40 | Outpatient (CLI) | payer MEDICARE, SELFPAY | PROVIDERS: Visit Provider Internal Medicine Adolescent Medicine | DX: E11.622 Type 2 diabetes mellitus with other skin ulcer (principal); L97.929 Non-pressure chronic ulcer of unspecified part of left lower leg with unspecified severity | CPT/HCPCS: 87070; 87077; 87186; 87205 ==

== ENCOUNTER → 2021-03-08 07:04 | Outpatient (CLI) | payer MEDICARE, SELFPAY ==
[2021-03-08 14:31] LABS: INR 5.11 (0.9-1.1); Prothrombin Time 53.4 seconds (10.1-12.5)
== END ==
PROVIDERS: Visit Provider Internal Medicine Adolescent Medicine
DX: Z51.81 Encounter for therapeutic drug level monitoring (principal); Z79.01 Long term (current) use of anticoagulants; R79.1 Abnormal coagulation profile
CPT/HCPCS: 36415; 85610

== ENCOUNTER → 2021-03-12 16:12 | Outpatient (CLI) | payer MEDICARE, SELFPAY ==
[2021-03-12 17:43] LABS: Chloride 96 mmol/L (98-107); Potassium 4.6 mmoL/L (3.5-5.1); Sodium 129 mmol/L (136-145)
[2021-03-12 17:46] LABS: Anion Gap 21.6 mEq/L (5-15); Carbon Dioxide 16 mmol/L (22.0-30.0)
[2021-03-12 17:47] LABS: Calcium 8.7 mg/dl (8.4-10.2); Glucose 205 mg/dl (74-100)
[2021-03-12 19:56] LABS: Estimated Glomerular Filt Rate 9 ml/min (>60); GFR (African American) 11 ML/MIN (>60)
[2021-03-12 21:07] LABS: Blood Urea Nitrogen 136 mg/dl (7-17)
== END ==
PROVIDERS: Visit Provider Internal Medicine Adolescent Medicine
DX: R79.1 Abnormal coagulation profile (principal)
CPT/HCPCS: 80048; 85610